=== PATIENT | female | born 1960 | race Asian ===

== ENCOUNTER 2020-03-04 07:23 | Emergency (ER) | payer OTHER ==
[~2020-03-04] VITALS: Ht 167.6 cm; Wt 61.4 kg
[2020-03-04] MEDS ORDERED: LOSA50TA37 PO (07:31)
[2020-03-04] MEDS ORDERED: ADV250 IH (07:31)
[2020-03-04] MEDS: BUPIVACAINE HCL/PF 0.25% 10 ML VIAL INJ ONE (07:43)
[2020-03-04 08:16] VITALS: BP 150/71
== END 2020-03-04 08:35 | disposition home or self-care (01) ==
LOC: EMS 07:25
DX: S61.412A Laceration without foreign body of left hand, initial encounter (principal); J45.909 Unspecified asthma, uncomplicated; I10 Essential (primary) hypertension; W45.8XXA Other foreign body or object entering through skin, initial encounter; Y93.89 Activity, other specified; Y92.89 Other specified places as the place of occurrence of the external cause; Y99.8 Other external cause status
CPT/HCPCS: 12002; 99282; J3490

== ENCOUNTER 2020-03-04 10:07 | Emergency (ER) | payer OTHER ==
[~2020-03-04] VITALS: Ht 167.6 cm; Wt 61.4 kg
[~2020-03-04 10:07] MED LIST: ADV250 IH; LOSA50TA37 PO
[2020-03-04 10:08] VITALS: BP 147/84
== END 2020-03-04 10:37 | disposition home or self-care (01) ==
LOC: EMS 10:09
DX: S61.412D Laceration without foreign body of left hand, subsequent encounter (principal); J45.909 Unspecified asthma, uncomplicated; I10 Essential (primary) hypertension; X58.XXXD Exposure to other specified factors, subsequent encounter

== ENCOUNTER 2020-03-06 08:14 | Emergency (ER) | payer OTHER ==
[~2020-03-06] VITALS: Ht 157.5 cm; Wt 53.6 kg
[2020-03-06 08:19] VITALS: BP 136/72
== END 2020-03-06 09:20 | disposition home or self-care (01) ==
LOC: EMS 08:15
DX: S60.222A Contusion of left hand, initial encounter (principal); J45.909 Unspecified asthma, uncomplicated; I10 Essential (primary) hypertension; X58.XXXA Exposure to other specified factors, initial encounter; Y93.89 Activity, other specified; Y92.89 Other specified places as the place of occurrence of the external cause; Y99.8 Other external cause status